=== PATIENT | female | born 1950 | race Caucasian/White ===

== ENCOUNTER 2019-05-29 09:22 | Outpatient (RCR) | payer OTHER, SELFPAY ==
--- NOTE | 2019-05-29 15:13 | PT.OIE ---
Current Diagnoses Dizziness and giddiness (05/29/19) Visit Care Team Role Provider Type Ligia Diaz PA-C Primary Care Provider Non-Staff Specialty: Medical Address: [address] [place], [place] [address], [place], [address] Email: Elie Ortiz MD Attending Provider Physician Referring Provider Specialty: Ear, Nose, Throat Address: [address] [place] [address] [place], [address] Email: [email or web address] Initial Evaluation PT-OP-A Visit Information Start: 05/29/19 14:47 Freq: Status: Active Protocol: Document 05/29/19 09:45 DCW (Rec: 05/29/19 15:13 DCW [id number]) Out-Patient Physical Therapy Visit Information Visit Information Visit Type Initial Evaluation Visit Start Time 09:45 Visit Stop Time 10:40 Total Visit Minutes 55 Visit Number 1 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 Pt reports episodes occur off and on lasting an indeterminant length of time. Symptoms are not really provoked by any specific motion, but can sometimes be worse with very quickly sitting up. Pt denies recent hearing changes or tinnitus, but does describe something that feels like wind in my right ear. Pt also denies dysarthria, discoordination, or decreased mentation/consciousness. Pt denies hx of HTN, diabetes, arrhythmia, head trauma, seizure, migraines, back/neck problems, CVA, anxiety/panic disorders, depression, or excessive smoking or drinking. PT-OP-C Subjective Start: 05/29/19 14:47 Freq: Status: Active Protocol: Document 05/29/19 09:45 DCW (Rec: 05/29/19 15:13 DCW [id number]) OP-PT Subjective Patient Comments Patient Comments It'a almost like all the imbalance is only in my head, like my can't tell that I'm off balance. Patient Questionnaires ABC- Activity Specific Balance Confidence Scale ABC Score 73.13% ABC Functional Impairment 20 to <40% Impaired (Score 61- 80) Dizziness Handicap Inventory DHI Score 40% DHI Functional Impairment 40 to 59% Impaired (Score 40- 59) OP-PT Pain Assessment Pain Assessment Grid Paper Pain Assessment Grid Completed N/A PT-OP-O Vestibular Start: 05/29/19 14:47 Freq: Status: Active Protocol: Document 05/29/19 09:45 DCW (Rec: 05/29/19 15:13 DCW [id number]) Vestibular Assessment Screening Tests Vestibular Artery Screen Negative Auditory Tests Solo Test Negative Rinne Test Negative Air Conduction Results Equal Visual Testing Smooth Pursuits Horizontal WNL Smooth Pursuits Vertical WNL Saccades Horizontal WNL Saccades Vertical WNL Gaze Evoked Nystagmus With Fixation Negative Gaze Evoked Nystagmus Without Fixation Negative Heave Test Negative Thrust Head Negative Convergence Test WNL DVA (Line Degradation) 1 Head Shake Negative Positional Testing Antonia-Hallpike Negative Left,Negative Right Rolling Test Negative Left,Negative Right Supine to Sit Negative Vestibular Function Tests CTSIB Position 1 30 sec CTSIB Position 2 30 sec CTSIB Position 3 30 sec CTSIB Position 4 30 sec CTSIB Position 5 30 sec CTSIB Position 6 30 sec PT-OP-T Assessment and Plan Start: 05/29/19 14:47 Freq: Status: Active Protocol: Document 05/29/19 09:45 DCW (Rec: 05/29/19 15:13 DCW [id number]) Physical Therapy Assessment Evaluation Complexity Number of Personal Factors/Comorbidities 0 Number of Body Systems Impaired 1-2 Clinical Presentation at Evaluation Unstable Assessment Summary Assessment Pt presented with an entirely negative vestibular examination. Pt had no positive testing for either a central or peripheral cause for her subjective imbalance. Pt's subjective history is not particularly consistent with any common impairment. Pt has no other complaints, and does not report any functional limitations. Pt does not lose her balance, and does not have any sensitivities to visual motion or a busy visual field, so it is unlikely further skilled vestibular therapy would be of any assistance. Pt was educated on Persistent Postural-Perceptual Dizziness (3PD), although this is not a very good fit with her symptoms, as it usually has visual motion sensitivity as it's number one complaint, which this pt is not experiencing at all. Pt was instructed to return to her PCP with any change in symptoms. Physical Therapy Plan Frequency and Duration Frequency of Treatment Eval only Duration of Treatment 1 day Plan of Care Start Date 05/29/19 Plan of Care End Date 05/30/19 Discharge Physical Therapy Discharge Comments No further skilled PT indicated at this time. Next Visit Focus/Plan Next Note Type Discharge Summary
--- NOTE | 2019-05-29 15:13 | PT.OPPOC ---
Physical, Occupational & Speech Therapy At [facility] Current Diagnoses Dizziness and giddiness (05/29/19) Visit Care Team Role Provider Type Ligia Diaz PA-C Primary Care Provider Non-Staff Specialty: Medical Address: [facility] [address], [place], [address] Email: Elie Ortiz MD Attending Provider Physician Referring Provider Specialty: Ear, Nose, Throat Address: [address] [place] [address], [id number] Email: [email or web address] Plan Of Care PT-OP-T Assessment and Plan Start: 05/29/19 14:47 Freq: Status: Active Protocol: Document 05/29/19 09:45 DCW (Rec: 05/29/19 15:13 DCW [id number]) Physical Therapy Assessment Evaluation Complexity Number of Personal Factors/Comorbidities 0 Number of Body Systems Impaired 1-2 Clinical Presentation at Evaluation Unstable Assessment Summary Assessment Pt presented with an entirely negative vestibular examination. Pt had no positive testing for either a central or peripheral cause for her subjective imbalance. Pt's subjective history is not particularly consistent with any common impairment. Pt has no other complaints, and does not report any functional limitations. Pt does not lose her balance, and does not have any sensitivities to visual motion or a busy visual field, so it is unlikely further skilled vestibular therapy would be of any assistance. Pt was educated on Persistent Postural-Perceptual Dizziness (3PD), although this is not a very good fit with her symptoms, as it usually has visual motion sensitivity as it's number one complaint, which this pt is not experiencing at all. Pt was instructed to return to her PCP with any change in symptoms. Physical Therapy Plan Frequency and Duration Frequency of Treatment Eval only Duration of Treatment 1 day Plan of Care Start Date 05/29/19 Plan of Care End Date 05/30/19 Discharge Physical Therapy Discharge Comments No further skilled PT indicated at this time. Next Visit Focus/Plan Next Note Type Discharge Summary Plan of Care Dates Plan of Care Start Date 05/29/19 Plan of Care End Date 05/30/19 Electronically Signed by: Rick Salazar, PT 05/29/19 1513 Please Sign and Return: I have reviewed this Plan of Care and certify that the skilled therapy services above are required to meet the patient?s needs. Physician Signature Date Printed Name and Credentials Clinical Instructor Signature Printed Name and Credentials
== END 2019-06-01 09:15 ==
LOC: PHYS 09:22
PROVIDERS: PCP Physician Assistant Medical; Referring Provider Otolaryngology; Visit Provider Otolaryngology
DX: R42 Dizziness and giddiness (principal)
CPT/HCPCS: 97161

== ENCOUNTER → 2024-11-30 14:46 | Outpatient (CLI) | payer MEDICARE, SELFPAY ==
--- NOTE | 2024-11-30 14:52 | EKG_ITS ---
[place] [address] [address] [place] [id number] Test Date: 2024-11-30 Pat Name: Amy Rodas Department: [facility] Room: Gender: Female [employer]: EDA : 1950 Requested By: Order Number: [id number] Reading MD: Stewart Tucker MD Measurements Intervals [place] Rate: 75 P: 77 SD: 162 QRS: 72 QRSD: 98 T: 39 QT: 398 QTc: 444 Interpretive Statements Normal sinus rhythm Possible Left atrial enlargement Incomplete right bundle branch block NO PRIOR TRACING Electronically Signed On 12-02-2024 14:43:35 PDT by Stewart Tucker MD
[2024-11-30 16:26] LABS: Add Manual Diff / Slide Review NO; Hematocrit 37.3 % (36-46); Hemoglobin 12.8 g/dL (12.0-16.0); Lymphocytes Absolute Auto 1900 /uL (1100-4500); Mean Corpuscular HGB Conc 34.3 % (30-36); Mean Corpuscular Hemoglobin 30.6 PG (26-34); Mean Corpuscular Volume 89.3 fL (80-100); Platelet Count 307 X10^3/uL (150-400)
[2024-11-30 16:39] LABS: Hemoglobin A1C% w Est Avg Glu 6.0 % (4.0-6.0)
[2024-11-30 16:51] LABS: Blood Urea Nitrogen 23 mg/dL (7-17); Calcium 10.2 mg/dL (8.4-10.2); Carbon Dioxide 24 mmol/L (22-32); Chloride 103 mmol/L (98-107); Estimated Glomerular Filt Rate > 60 mL/min (>60); Glucose 87 mg/dL (70-99); HEMOLYSIS < 15 (0-50); Potassium 4.2 mmol/L (3.4-5.1); Sodium 136 mmol/L (137-145)
[2024-11-30 17:14] LABS: Appearance Urine UA CLEAR; Bilirubin Urine UA NEGATIVE (NEGATIVE); Color Urine UA YELLOW; Glucose Urine UA NEGATIVE (Negative); Ketones Urine UA NEGATIVE (NEGATIVE); Leukocyte Esterase Urine UA NEGATIVE (NEGATIVE); Nitrite Urine UA NEGATIVE (Negative); Occult Blood Urine UA NEGATIVE (Negative); Protein Urine UA NEGATIVE (Negative); Specific Gravity Urine UA 1.010 (1.000-1.035); Urobilinogen Urine UA 0.2 E.U./dL (0.2)
[2024-11-30 17:16] LABS: pH Urine UA 6.0 (4.5-8.0)
[2024-11-30 17:23] LABS: Culture Indicated Urine Cult Not Indicated
== END ==
LOC: RESP 14:50
PROVIDERS: PCP Physician Assistant Medical; Referring Provider Orthopaedic Surgery; Visit Provider Orthopaedic Surgery
DX: Z01.818 Encounter for other preprocedural examination (principal); N39.0 Urinary tract infection, site not specified; R73.9 Hyperglycemia, unspecified; Z01.812 Encounter for preprocedural laboratory examination
CPT/HCPCS: 36415; 80048; 81001; 83036; 85025; 93005